=== PATIENT | female | born 1970 | race Caucasian/White ===

== ENCOUNTER 2017-02-15 08:36 | Observation (INO) ==
[2017-02-15 09:36] LABS: Basophils % 0.4 %; Eosinophils # 0.1 K/mcL (0.0-0.6); Eosinophils % 1.7 %; Hematocrit 41.2 % (35.3-44.9); Hemoglobin 13.6 g/dL (11.5-15.4); Immature Granulocytes % 0.4 % (0-4); Lymphocytes # 1.3 K/mcL (0.6-4.6); Lymphocytes % 15.3 %; Mean Corpuscular Hemoglobin 30.5 pg (28.0-33.3); Mean Corpuscular Volume 92.4 fL (83.0-100.0); Monocytes # 0.6 K/mcL (0.0-1.3); Monocytes % 7.5 %; Neutrophils # 6.1 K/mcL (1.6-8.9); Platelet Count 271 K/mcL (140-400); Red Blood Count 4.46 M/mcL (3.82-4.97); Red Cell Distribution Width 12.7 % (11.5-14.5); Segmented Neutrophils % 74.7 %
[2017-02-15 09:40] LABS: Prothrombin Time 10.7 Seconds (9.4-12.1)
[2017-02-15 09:43] LABS: Activated Partial Thrombo Time 29.6 Seconds (26.0-36.0)
[2017-02-15 09:48] LABS: BUN/Creatinine Ratio 11 (6-26); Blood Urea Nitrogen 9 mg/dL (7-20); Calcium 9.6 mg/dL (8.6-10.8); Carbon Dioxide 27 mEq/L (19-29); Chloride 103 mEq/L (98-109); Glucose 84 mg/dL (70-99); Osmolality,Calculated 284 (280-300); Potassium 3.9 mEq/L (3.5-4.5); Sodium 138 mEq/L (136-145); eGFR For African Americans > 60 (> 60); eGFR For Non-African Americans > 60 (> 60)
[2017-02-15 10:16] LABS: Alanine Aminotransferase 11 Units/L (0-55); Albumin 3.9 g/dL (3.5-5.0); Albumin/Globulin Ratio 1.1 (1.1-2.2); Alkaline Phosphatase 68 Units/L (38-126); Aspartate Amino Transferase 14 Units/L (5-34); Bilirubin,Direct 0.3 mg/dL (0.0-0.5); Bilirubin,Indirect 0.5 mg/dL (0.0-1.2); Bilirubin,Total 0.8 mg/dL (0.2-1.2); Globulin 3.4 g/dL (2.4-3.5); Total Protein 7.3 g/dL (6.0-8.3)
[2017-02-15] MEDS ORDERED: Aspirin 325 MG TABLET PO ONE (12:53)
[2017-02-15] MEDS ORDERED: Nitroglycerin 0.4 MG TAB.SUBL SL PRN (12:53)
--- NOTE | 2017-02-15 13:35 | Emergency Department Note ---
Disposition Clinical Impression: Chest pain Qualifiers: Chest pain type: unspecified Qualified Code(s): R07.9 - Chest pain, unspecified Disposition: Home, Self-Care Condition: Good Reasons to Return/Additional Instructions: You will need to follow up with your pcp in the next 48 hours for recheck and possible stress test. Referrals: NONE,PCP [Primary Care Provider] - Forms: ED Satisfaction Letter Chest Pain HPI - General Chief Complaint: ED Chest Pain Stated Complaint: Chest Pain Time Seen by Provider: 02/15/17 09:02 Source: patient Limitations: no limitations Vital Signs Reviewed: Yes Nursing Notes Reviewed: Yes - History of Present Illness HPI Narrative: This is a 46-year-old female presents with concern for chest pain. She does not have family history of early heart attack. She presents now with concern for chest pain over the left chest wall. She has no dyspnea. She has no cough. She denies congestion. She admits to pain that has been constant and under her left breast for approximately 2 days. Severity scale (1-10): 4 - Related Data Home Medications Medication Instructions Recorded Confirmed Glucosamine Sulfate Dipot Chlr 2,000 mg PO DAILY 01/25/17 01/25/17 [Glucosamine] Lactobacillus Acidophilus 1 mg PO DAILY 01/25/17 01/25/17 [Acidophilus Probiotic] Montelukast [Singulair] 10 mg PO DAILY 01/25/17 01/25/17 Turmeric Root Extract [Turmeric] 500 mg PO DAILY 01/25/17 01/25/17 Vitamin E Acetate [Vitamin E] 400 unit PO DAILY 01/25/17 01/25/17 Xyzal 5 mg PO DAILY 01/25/17 01/25/17 Allergies Allergy/AdvReac Type Severity Reaction Status Date / Time Sulfa (Sulfonamide Allergy Hives Verified 02/15/17 08:39 Antibiotics) All systems ED: reviewed and negative except as stated. Chest Pain PMH - Past Medical History Medical history: Reports: other Psychiatric history: Reports: anxiety - Social History Smoking Status: Former smoker Alcohol use: Reports: none Drug use: Reports: none Physical Exam - General Limitations: no limitations General appearance: alert, in no apparent distress - Head Head exam: atraumatic - ENT ENT exam: normal exam - Neck Neck exam: Present: normal inspection, full ROM - Chest Chest inspection: Present: normal inspection - Respiratory Respiratory exam: Present: normal lung sounds bilaterally - Cardiovascular Cardiovascular exam: Present: regular rate, normal rhythm - Abdominal Exam Abdominal exam: Present: soft, Non-Tender - Extremities Exam Extremities exam: Present: normal inspection, full ROM - Expanded Lower Extremity Exam Hip/Pelvis exam: Present: normal inspection, full ROM Neurovascular/Tendon exam: Present: normal capillary refill Gait: observed and normal - Back Exam Back exam: Present: normal inspection, full ROM - Neurological Exam Neurological exam: Present: alert, oriented X3 - Psychiatric Psychiatric exam: Present: normal affect, normal mood Course Vital Signs Temperature 97.3 F L 02/15/17 08:39 Pulse Rate 86 02/15/17 08:39 Respiratory Rate 16 02/15/17 08:39 Blood Pressure 115/77 02/15/17 08:39 O2 Sat by Pulse Oximetry 100 02/15/17 08:39 Temperature 97.3 F L 02/15/17 08:39 Pulse Rate 85 02/15/17 13:27 Respiratory Rate 18 02/15/17 13:27 Blood Pressure 113/72 02/15/17 13:27 O2 Sat by Pulse Oximetry 99 02/15/17 13:27 Oxygen Delivery Oxygen Delivery Room Air Chest Pain - MDM Narrative Medical decision making narrative: Atypical chest wall pain. There were findings of atelectasis over the left chest wall. Her pain is certainly more than I would expect given negative cardiac biomarkers as well as a nonspecific EKG. Her heart score is 5. I would proceed with admission because she does have ST segment changes in V4 and V5 which could represent early ischemia. I do think she would benefit from provocative testing. Despite negative cardiac biomarkers and no change in her pain with nitroglycerin administration I think she would benefit from cardiology consultation as well. Patient will be admitted for further evaluation. Discussed case with hospitalist team. - Medical Records Medical records reviewed: Yes I reviewed the patient's medical records. - Lab Data Lab results reviewed: Yes I reviewed the patient's lab results. Result diagrams: 02/15/17 09:27 02/15/17 09:27 Lab Results 02/15/17 02/15/17 02/15/17 Range/Units 09:27 09:27 09:27 WBC 8.2 (4.3-11.1) K/mcL RBC 4.46 (3.82-4.97) M/mcL Hgb 13.6 (11.5-15.4) g/dL Hct 41.2 (35.3-44.9) % MCV 92.4 (83.0-100.0) fL MCH 30.5 (28.0-33.3) pg MCHC 33.0 (31.6-35.5) g/dL RDW 12.7 (11.5-14.5) % Plt Count 271 (140-400) K/mcL MPV 9.0 L (9.4-12.4) fL Immature Gran % 0.4 (0-4) % Seg Neutrophils % 74.7 % Lymphocytes % 15.3 % Monocytes % 7.5 % Eosinophils % 1.7 % Basophils % 0.4 % Neutrophils # 6.1 (1.6-8.9) K/mcL Lymphocytes # 1.3 (0.6-4.6) K/mcL Monocytes # 0.6 (0.0-1.3) K/mcL Eosinophils # 0.1 (0.0-0.6) K/mcL Basophils # 0.0 (0.0-0.2) K/mcL PT 10.7 (9.4-12.1) Seconds INR 1.0 APTT 29.6 (26.0-36.0) Seconds D-Dimer 376 (0-500) ng/mLFEU Sodium (136-145) mEq/L Potassium (3.5-4.5) mEq/L Chloride (98-109) mEq/L Carbon Dioxide (19-29) mEq/L BUN (7-20) mg/dL Creatinine (0.57-1.11) mg/dL Est GFR ( Amer) (> 60) Est GFR (Non-Af Amer) (> 60) BUN/Creatinine Ratio (6-26) Glucose (70-99) mg/dL Calculated Osmolality (280-300) Calcium (8.6-10.8) mg/dL Total Bilirubin (0.2-1.2) mg/dL Direct Bilirubin (0.0-0.5) mg/dL Indirect Bilirubin (0.0-1.2) mg/dL AST (5-34) Units/L ALT (0-55) Units/L Alkaline Phosphatase (38-126) Units/L Troponin I (0-0.03) ng/mL Serum Total Protein (6.0-8.3) g/dL Albumin (3.5-5.0) g/dL Globulin (2.4-3.5) g/dL Albumin/Globulin Ratio (1.1-2.2) Lipase 16 (8-78) Units/L 02/15/17 02/15/17 Range/Units 09:27 09:27 WBC (4.3-11.1) K/mcL RBC (3.82-4.97) M/mcL Hgb (11.5-15.4) g/dL Hct (35.3-44.9) % MCV (83.0-100.0) fL MCH (28.0-33.3) pg MCHC (31.6-35.5) g/dL RDW (11.5-14.5) % Plt Count (140-400) K/mcL MPV (9.4-12.4) fL Immature Gran % (0-4) % Seg Neutrophils % % Lymphocytes % % Monocytes % % Eosinophils % % Basophils % % Neutrophils # (1.6-8.9) K/mcL Lymphocytes # (0.6-4.6) K/mcL Monocytes # (0.0-1.3) K/mcL Eosinophils # (0.0-0.6) K/mcL Basophils # (0.0-0.2) K/mcL PT (9.4-12.1) Seconds INR APTT (26.0-36.0) Seconds D-Dimer (0-500) ng/mLFEU Sodium 138 (136-145) mEq/L Potassium 3.9 (3.5-4.5) mEq/L Chloride 103 (98-109) mEq/L Carbon Dioxide 27 (19-29) mEq/L BUN 9 (7-20) mg/dL Creatinine 0.84 (0.57-1.11) mg/dL Est GFR ( Amer) > 60 (> 60) Est GFR (Non-Af Amer) > 60 (> 60) BUN/Creatinine Ratio 11 (6-26) Glucose 84 (70-99) mg/dL Calculated Osmolality 284 (280-300) Calcium 9.6 (8.6-10.8) mg/dL Total Bilirubin 0.8 (0.2-1.2) mg/dL Direct Bilirubin 0.3 (0.0-0.5) mg/dL Indirect Bilirubin 0.5 (0.0-1.2) mg/dL AST 14 (5-34) Units/L ALT 11 (0-55) Units/L Alkaline Phosphatase 68 (38-126) Units/L Troponin I 0.00 (0-0.03) ng/mL Serum Total Protein 7.3 (6.0-8.3) g/dL Albumin 3.9 (3.5-5.0) g/dL Globulin 3.4 (2.4-3.5) g/dL Albumin/Globulin Ratio 1.1 (1.1-2.2) Lipase (8-78) Units/L Heart Score - Score History: Moderately Suspicious EKG: Significant ST-Depression Age: 45-65 Risk Factors: 1-2 risk factors Troponin: Less than normal limit HEART Score Total: 5
[2017-02-15] MEDS ORDERED: Acetaminophen 325 MG TABLET PO PRN (16:20)
[2017-02-15] MEDS ORDERED: *HR* Morphine 2 MG/ML SYRINGE IVP PRN (16:20)
[2017-02-15] MEDS ORDERED: Naloxone 0.4 MG/ML INJ IVP PRN (16:20)
[2017-02-15] MEDS ORDERED: Ondansetron 4 MG/2 ML VIAL IVP PRN (16:20)
--- NOTE | 2017-02-15 16:38 | Internal Med History&Physical ---
<Lb Damon - Last Filed: 02/15/17 18:45> Date of Encounter: 02/15/17 Time of Encounter: 15:30 Assessment and Plan (1) Chest pain Current visit: Yes Status: Acute Assess: Patient presents with acute left-sided chest pain that she reports began on Tuesday and has worsened in intensity. She describes the pain under her left breast and radiating to her left shoulder blade and back. She states the pain began as sharp and stabbing and comes and goes and becomes worse with deep inspiration. She denies cough or sputum production. Patient has no medical history and denies any previous cardiac events or issues but has familial history of cardiac risk factors including, HD, CO, and CVA. Initial troponin was 0.00. Patient states that nitroglycerin did not help her symptoms. EKG today shows sinus rhythm with short [place] intervals. Plan: Stat echocardiogram ordered Continuous cardiac telemetry Trend troponins x2 Nitroglycerin PRN Continue daily 81 mg aspirin therapy Repeat EKG Consider cardiology consult and/or stress test based on echocardiogram results Cardiac diet Qualifiers: Chest pain type: chest pain on breathing Qualified Code(s): R07.1 - Chest pain on breathing; R07.81 - Pleurodynia (2) CAP (community acquired pneumonia) Current visit: Yes Status: Acute Assess: Patient presents with chest pain and shortness of breath. Patient states that her chest pain is located under her left breast and radiates to her back and becomes worse with inspiration. Plan: Continue IV ceftriaxone 1,000 mg daily that was started in the ED Add IV levaquin 750 mg daily for CAP infection coverage Blood cultures x2 ordered Supplemental O2 and SpO2 monitoring DuoNebs Q4 scheduled Monitor patient's f/u labs for signs of increasing infection Qualifiers: Laterality: left Lung location: lower lobe of lung Qualified Code(s): J18.1 - Lobar pneumonia, unspecified organism (3) SOB (shortness of breath) Current visit: Yes Status: Acute Assess: Patient presents with acute SOB related to current chest pain and pain with inspiration. 1-View CXR today shows trace left base atelectasis. Plan: Supplemental O2 with continuous SpO2 monitoring DuoNebs Q4 scheduled Will continue IV antibiotics for suspected CAP coverage Monitor patient and VS (4) Dizziness Current visit: Yes Status: Acute Assess: Patient presents with report of acute dizziness, mainly related to positional changes. Plan: Orthostatic BPs and vital signs ordered Falls precautions Up with assist d/t dizziness Bed rest with bathroom privileges with assist only (5) DVT prophylaxis Current visit: Yes Status: Acute Assess: Patient to be placed on DVT prophylaxis due to current admission protocol and bed rest status. Plan: Heparin 5,000 units SQ Q8 ordered Internal Medicine - H&P: HPI Chief complaint: Chest pain Admitted From: Emergency Dept Plans for Post Hospital Care: Home History of present illness: Mrs. Houser is a 46 year old female who presents from the ED with chief complaint of left-sided chest pain that she reports began on Tuesday and has worsened in intensity. She describes the pain under her left breast and radiating to her left shoulder blade and back. She states the pain began as sharp and stabbing and comes and goes and becomes worse with deep inspiration. She denies cough or sputum production. Patient has no medical history and denies any previous cardiac events or issues. She denies nausea, vomiting, diarrhea, constipation, recent illness, fever, chills, abdominal pain, pre- syncope, or syncope. She does report SOB due to pain with breathing and some dizziness with positional changes. Patient's 1-View CXR today shows trace left base atelectasis. U/S of the gall bladder today shows an unremarkable right upper quadrant ultrasound. CT of the chest today shows atelectatic changes seen at the left lung base with no acute cardiopulmonary process seen. Patient does have a family history of cardiac risk factors that includes HD, CVA, and CO. Mrs. Houser is at moderate risk for cardiac event based on her current symptoms and risk factors and will be placed as inpatient status with orders for stat echocardiogram, continuous cardiac telemetry, supplemental O2 and SpO2 monitoring, troponins trended x2, DuoNebs Q4 scheduled, and aspirin therapy daily. Patient was started on IV ceftriaxone in the ED for possible CAP. Will continue IV ceftriaxone at 1,000 mg daily and add IV levaquin 750 mg daily for CAP infection coverage. Patient's current chest pain could be cardiac related versus pneumonia and she will be treated for both. Patient to be monitored closely for signs of increasing infection, cardiac, and/or respiratory distress. Time spent with patient and family >40 minutes. Past Med Surg Social Fam HX - Past Medical History Source: patient Medical history: no medical history Psychiatric history: anxiety - Past Surgical History Surgical History: orthopedic, other (Right knee), other (D&C in 1987) - Social History Smoking Status: Former smoker Packs per day: 5 cigarettes per day Smokeless Tobacco Status: No Alcohol use: none Drug use: none Current living situation: Home, With Family Activity Level: Independent ambulation Recent Out of Country Travel Within the Last 8 Weeks: No Exposure or Possible Exposure to Illness During Travel: No - Family History Father Race: Family Member Ethnicity: Non- Living Status: Still Living Hx Family Cardiac Disorders: Yes (HD, CVA, CO) Hx Family Cancer: Yes (Lung, colon) Mother Race: Family Member Ethnicity: Non- Living Status: Still Living Hx Family Cancer: Yes (Cervical) Sister Race: Family Member Ethnicity: Non- Living Status: Still Living Hx Family Medical Disorders: No Internal Medicine - H&P: Meds Glucosamine Sulfate Dipot Chlr [Glucosamine] 2,000 mg PO DAILY 01/25/17 [History ] Lactobacillus Acidophilus [Acidophilus Probiotic] 1 mg PO DAILY 01/25/17 [ History] Montelukast [Singulair] 10 mg PO DAILY 01/25/17 [History] Turmeric Root Extract [Turmeric] 500 mg PO DAILY 01/25/17 [History] Vitamin E Acetate [Vitamin E] 400 unit PO DAILY 01/25/17 [History] Xyzal 5 mg PO DAILY 01/25/17 [History] 3 Allergy/AdvReac Type Severity Reaction Status Date / Time Sulfa (Sulfonamide Allergy Hives Verified 02/15/17 08:39 Antibiotics) All Systems PM: A 10-system review of systems was performed and is negative for pertinent findings except as documented above in the HPI. - Constitutional Constitutional: no chills, no fever(s), no night sweats - EENT Eyes: no change in vision, no discharge, no pain, no photophobia Ears: no ear discharge, no ear pain, no tinnitus Nose, mouth and throat: no dysphagia, no nasal discharge, no neck pain, no sore throat - Breasts Breasts: as per HPI - Cardiovascular Cardiovascular ROS IM: as per HPI, chest pain, dyspnea, dyspnea on exertion, lightheadedness - Respiratory Respiratory: as per HPI, dyspnea, dyspnea on exertion, pain on inspiration, pain with cough - Gastrointestinal Gastrointestinal: no abdominal pain, no diarrhea, no hematemesis, no hematochezia, no melena, no nausea, no vomiting - Genitourinary Genitourinary: no change in urinary stream, no dysuria, no flank pain, no hematuria Menstruation: as per HPI - Musculoskeletal Musculoskeletal ROS IM: no numbness, no tingling - Integumentary Integumentary IM: no rash, no unusual bruising - Neurological Neurological ROS: no confusion, no convulsions, no focal weakness, no numbness, no tingling, no tremor(s) - Psychiatric Psychiatric: as per HPI - Endocrine Endocrine IM: as per HPI - Hematologic/Lymphatic Hematologic/Lymphatic: no easy bruising - Allergic/Immunologic Allergic/Immunologic: as per HPI - Constitutional Vitals: Temp Pulse Resp BP Pulse Ox 97.3 F L 85 18 124/76 99 02/15/17 08:39 02/15/17 13:27 02/15/17 16:03 02/15/17 16:03 02/15/17 13:27 General appearance: Present: cooperative, mild distress, A&O X 3, pleasant, obese, answers questions appropriately - Head Head exam: Present: atraumatic, normocephalic - Eye Eye exam: Present: PERRL, conjuntiva pink, sclera anicteric Pupils: Present: PERRL - ENT ENT exam: Present: normal exam, normal external ear exam - Neck Neck exam general surgery: Present: normal inspection, supple, trachea midline. Absent: lymphadenopathy - Respiratory Respiratory exam: Present: accessory muscle use (Due to pain with inspiration. ) - Cardiovascular Cardiovascular exam: Present: RRR, +S1, +S2. Absent: diastolic murmur, gallop, rubs, systolic murmur - GI/Abdominal GI/Abdominal exam: Present: normal bowel sounds, soft, no peritoneal signs. Absent: distended, tenderness - Rectal Rectal exam: Present: deferred - Additional comments: exam deferred. - Extremities Exam Extremities exam: Present: warm, radial pulses palpable and symmetrical. Absent : calf tenderness, cyanotic, pedal edema - Back Exam Back exam: Present: normal inspection - Neurological Exam Neurological exam: Present: CN II-XII intact, oriented X3, no focal deficits. Absent: pronater drift, facial droop, speech deficit - Psychiatric Psychiatric exam: Present: normal affect, normal mood - Skin Skin exam: Present: dry, intact Internal Med - H&P Results - Labs CBC & Chem 7: 02/15/17 09:27 02/15/17 09:27 - EKG Data EKG shows normal: sinus rhythm - EKG Data Prior EKG available for review: no EKG comments: 02/15/17 16:50 EKG dated 02/15/17 shows sinus rhythm with short [place] interval. Borderline ECG. - Diagnostic Studies Chest x-ray Additional comments: Impressions Chest X-Ray 02/15/17 09:13 IMPRESSION: Trace left base atelectasis D/ / Dayday Dee MD / Dayday Dee MD Interpreting Provider: Dayday Dee MD CT scan - chest Additional comments: Impressions Chest CT 02/15/17 10:49 IMPRESSION: Atelectatic changes seen at the left lung base with no acute cardiopulmonary process seen. D/ / Jake Claudio MD / Jake Claudio MD Interpreting Provider: Jake Claudio MD US - abdomen Additional comments: Impressions Gallbladder Ultrasound 02/15/17 09:38 IMPRESSION: Unremarkable right upper quadrant ultrasound. D/ / Carlos Steve MD / Carlos Steve MD Interpreting Provider: Carlos Steve MD <Tony Wu K - Last Filed: 02/15/17 18:58> Date of Encounter: 02/15/17 Internal Medicine - H&P: HPI History of present illness: Ms. Houser is a 46 year old female All Systems PM: A 10-system review of systems was performed and is negative for pertinent findings except as documented above in the HPI. - Constitutional Vitals: Temp Pulse Resp BP Pulse Ox 98.4 F 85 18 114/74 99 02/15/17 16:41 02/15/17 16:41 02/15/17 16:41 02/15/17 16:41 02/15/17 16:41 Internal Med - H&P Results - Labs CBC & Chem 7: 02/15/17 09:27 02/15/17 09:27 Labs: Cardiac Enzymes 02/15/17 Range/Units 17:32 Troponin I 0.00 (0-0.03) ng/mL - Attending Attestation I have personally seen the patient and examined the patient. She has come in with the pleuritic chest pain which is on the left side and correlates well with her CT chest findings of left-sided atelectasis which what I would consider as pneumonia. On examination her breath sounds are shallow I suspect due to pain therefore I will put her on ibuprofen and [place] combination for a few doses so that pleuritic chest pain resolves. We will check her cardiac enzymes and echocardiogram. She will be treated with IV antibiotics. Plan discuss with advancednurse practitioner
[2017-02-15] MEDS: Levofloxacin 750 MG/150 ML 750 MG/150 ML BAG IVPB SCH (16:53)
[2017-02-15] MEDS: Pantoprazole 40 MG VIAL IVP SCH (16:53)
[2017-02-15] MEDS: Ipratropium/Albuterol Neb 3 ML IH SCH ×3 (17:06→23:23)
[2017-02-15] MEDS: *HR* HYDROcodone/Acet 5/325 mg TABLET PO PRN (20:36)
--- NOTE | 2017-02-15 20:52 | Electrocardiograph Report ---
[place] [facility] Test Date: 2017-02-15 Pat Name: Ynu Houser Department: 104 Room: [facility] Gender: F [employer]: AM : 1970 Requested By: Elpidio Cota Order Number: [id number] Reading MD: Chris Hu MD Measurements Intervals [place] Rate: 77 P: 65 GA: 108 QRS: 79 QRSD: 88 T: 59 QT: 389 QTc: 421 Interpretive Statements SINUS RHYTHM WITH SHORT GA INTERVAL Electronically Signed On 02-15-2017 20:50:24 EDT by Chris Hu MD
[2017-02-15] MEDS ORDERED: Temazepam 15 MG CAPSULE PO PRN (23:24)
[2017-02-15] MEDS: *HR* Heparin 5,000 UNIT/ML VIAL SQ SCH (23:48)
[2017-02-16 02:34] LABS: Basophils % 0.2 %; Eosinophils # 0.1 K/mcL (0.0-0.6); Eosinophils % 0.7 %; Hematocrit 36.2 % (35.3-44.9); Hemoglobin 12.4 g/dL (11.5-15.4); Immature Granulocytes % 0.3 % (0-4); Lymphocytes # 1.3 K/mcL (0.6-4.6); Lymphocytes % 13.6 %; Mean Corpuscular HGB Conc 34.3 g/dL (31.6-35.5); Mean Corpuscular Hemoglobin 31.2 pg (28.0-33.3); Mean Platelet Volume 9.3 fL (9.4-12.4); Monocytes % 9.8 %; Neutrophils # 7.3 K/mcL (1.6-8.9); Platelet Count 254 K/mcL (140-400); Red Blood Count 3.98 M/mcL (3.82-4.97); Red Cell Distribution Width 12.8 % (11.5-14.5); Segmented Neutrophils % 75.4 %
[2017-02-16 02:38] LABS: INR 1.1; Prothrombin Time 12.3 Seconds (9.4-12.1)
[2017-02-16 02:41] LABS: Activated Partial Thrombo Time 32.1 Seconds (26.0-36.0)
[2017-02-16 02:48] LABS: BUN/Creatinine Ratio 12 (6-26); Blood Urea Nitrogen 10 mg/dL (7-20); Calcium 9.1 mg/dL (8.6-10.8); Carbon Dioxide 26 mEq/L (19-29); Chloride 106 mEq/L (98-109); Chol/HDL Ratio 3.2 (0-4.9); Cholesterol 211 mg/dL (< 200); Glucose 96 mg/dL (70-99); HDL Cholesterol 65 mg/dL (40-59); LDL Cholesterol,Calculated 128 mg/dL (0-99); Magnesium 2.1 mg/dL (1.6-2.6); Osmolality,Calculated 289 (280-300); Potassium 3.4 mEq/L (3.5-4.5); Sodium 140 mEq/L (136-145); Triglycerides 92 mg/dL (< 150); eGFR For African Americans > 60 (> 60); eGFR For Non-African Americans > 60 (> 60)
[2017-02-16] MEDS: Ipratropium/Albuterol Neb 3 ML IH SCH ×4 (04:02→16:32)
[2017-02-16] MEDS: *HR* HYDROcodone/Acet 5/325 mg TABLET PO PRN ×2 (04:51→11:37)
[2017-02-16] MEDS ORDERED: Loratadine 10 MG TABLET PO SCH (09:00)
[2017-02-16] MEDS: *HR* Heparin 5,000 UNIT/ML VIAL SQ SCH (09:03)
[2017-02-16] MEDS: Pantoprazole 40 MG VIAL IVP SCH (09:03)
--- NOTE | 2017-02-16 09:54 | Internal Med Progress Note ---
Date of Encounter: 02/16/17 - Constitutional Vitals: Temp Pulse Resp BP Pulse Ox 98.1 F 90 16 118/71 97 02/16/17 07:29 02/16/17 07:29 02/16/17 07:29 02/16/17 07:29 02/16/17 07:29 General appearance: Present: cooperative, mild distress, A&O X 3, pleasant, obese, answers questions appropriately Internal Medicine: Result - Labs CBC & Chem 7: 02/16/17 01:34 02/16/17 01:34 Labs: Short CBC 02/16/17 Range/Units 01:34 WBC 9.7 (4.3-11.1) K/mcL Hgb 12.4 (11.5-15.4) g/dL Hct 36.2 (35.3-44.9) % Plt Count 254 (140-400) K/mcL Neutrophils # 7.3 (1.6-8.9) K/mcL BMP 02/16/17 01:34 Sodium 140 Potassium 3.4 L Chloride 106 Carbon Dioxide 26 BUN 10 Creatinine 0.85 Glucose 96 Calcium 9.1 Cardiac Enzymes 02/15/17 02/16/17 Range/Units 17:32 01:34 Troponin I 0.00 0.00 (0-0.03) ng/mL - ABG Interpretation ABG results: PT/INR, D-dimer PT 12.3 Seconds (9.4-12.1) H 02/16/17 01:34 D-Dimer 376 ng/mLFEU (0-500) 02/15/17 09:27 Consult Discharge Plan - Plan Referrals: NONE,PCP [Primary Care Provider] -
[2017-02-16] MEDS: Levofloxacin 750 MG/150 ML 750 MG/150 ML BAG IVPB SCH (10:14)
[2017-02-16 15:09] VITALS: BP 116/74
--- NOTE | 2017-02-16 16:39 | Discharge Summary ---
<Renetta Claudio - Last Filed: 02/16/17 16:42> Date of Encounter: 02/16/17 Time of Encounter: 16:39 - Discharge Diagnosis (1) Chest pain Priority: Primary Status: Acute Qualifiers: Chest pain type: chest pain on breathing Qualified Code(s): R07.1 - Chest pain on breathing; R07.81 - Pleurodynia (2) Somatic dysfunction of rib Priority: Primary Status: Acute (3) SOB (shortness of breath) Priority: Primary Status: Resolved (4) Hypokalemia Priority: Primary Status: Acute (5) Hypercholesterolemia Priority: Secondary Status: Acute - Discharge Medications Home Medications: Glucosamine Sulfate Dipot Chlr [Glucosamine] 2,000 mg PO DAILY 01/25/17 [History ] Lactobacillus Acidophilus [Acidophilus Probiotic] 1 mg PO DAILY 01/25/17 [ History] Montelukast [Singulair] 10 mg PO DAILY 01/25/17 [History] Turmeric Root Extract [Turmeric] 500 mg PO DAILY 01/25/17 [History] Vitamin E Acetate [Vitamin E] 400 unit PO DAILY 01/25/17 [History] Xyzal 5 mg PO DAILY 01/25/17 [History] Allergies/Adverse Reactions: 3 Allergy/AdvReac Type Severity Reaction Status Date / Time Sulfa (Sulfonamide Allergy Hives Verified 02/15/17 08:39 Antibiotics) Procedures/tests Complete & Pending: Procedures Performed prior 72 hours Category Date Time Status EKG [ECG 12 lead ECG] [ECG] Routine Y 02/15/17 17:09 Ordered EV echocardiogram Stat Y 02/15/17 16:23 Completed Date of admission: 02/15/17 15:40 Primary care physician: PCP NONE - Patient Status Disposition: Home, Self-Care Condition: Good Functional capacity at discharge: independent ambulation Overall status at discharge: patient is progressing back to baseline - Discharge Instructions Instructions: Noncardiac Chest Pain (DC) Follow Up With: Arturo Sheth MD [Non-Partnered Physician] - 02/25/17 9:30 am Additional Instructions: Return to the emergency department if: You have severe chest pain or develop chest pain with excursion or associated nausea, vomiting, radiating pain. If symptoms worsen or new symptoms arise. Contact your healthcare provider if: Your chest pain does not get better, even with treatment. You have questions or concerns about your condition or care. Follow-up with your primary care physician within the next week for follow-up on potassium and hospital admission. Begin to eat more high potassium foods such as spinach and bananas. Use Tylenol or ibuprofen for pain control. - Diet and Activity Activity: resume usual activities as tolerated Diet: regular diet Hospital course: Ms. Houser is a 46 year old female with no significant past medical history presented to the ED with 2 days of left-sided chest pain and was admitted to the hospital for acute coronary artery disease and work up for chest pain. EKGs showed sinus rhythm without only ST changes on first beat of transition to V4 and V5. Patient's troponins were followed and were 0.02. Echo showed ejection fraction of 60-65% and normal valvular, atrial, and diastolic function. Patient has not smoked in 3 years, denies medical hx of HTN or DM, family hx of youngest family member with an GA is 60 y/o. Community-acquired pneumonia was ruled out due to CXR and chest CT showing only atelectasis at the left base and she has no clinical symptoms as she denies cough, sputum, fever. Patient's white blood cell count also remained within normal limits during her hospital stay along wit her vitals. PE was ruled out as a d-dimer was 376 and she is low risk without prior hx of PE or DVT, no recent travel, or surgical hx. Patient's pain does not radiate to her back and her vitals have been stable since arrival so AAA is highly unlikely. Chest pain is most likely due to musculoskeletal pain as pain is reproducible with palpation under her L breast and around her left side to her back along rib 6. OMT was perforemd using Myofascial release and still technique and patient's pain decreased significantly and the sharp pain went away and she was now complaining of a dull pain. Patient was instruchted to us an NSAID for or Tylenol and a heating pad to help relax her muscles. Patient was found to be hypokalemic at 3.4 and was given 1 dose of oral potassium chloride 40 mg and instructed to follow-up with her primary care physician to monitor. Patients total cholesterol and LDL were noted to be elevated but ASCVD risk was calculated at 2.2% and therefore does not need a long-term statin. She was instructed to follow-up with her primary care physician within the next week for hospital follow-up to monitor her potassium and work up other chronic causes of shortness of breath. Patient instructed to use Motrin or Tylenol for pain and to return to the ED of symptoms worsen or new symptoms arise. - Time Spent with Patient Total time spent providing and/or coordinating discharge services: - Constitutional Vitals: Temp Pulse Resp BP Pulse Ox 98.0 F 86 16 116/74 100 02/16/17 15:02/16/17 15:02/16/17 15:02/16/17 15:02/16/17 15:09 General appearance: Present: cooperative, mild distress, A&O X 3, pleasant, obese, answers questions appropriately Exam: Constitutional: Alert, in no acute distress, well nourished, well developed. Head: Normocephalic, atraumatic, normal contour and symmetric, no masses, lesions or scars Heart: Normal, regular rate and rhythm, no murmurs Chest: pinpoint tenderness at L costal margin on head of rib 6 anteriorly and along rib below L breast and posteriorly to her back, tenderness diminished with superior pressure on the inferior aspect of the rib Lungs: Clear to auscultation, no wheezes, rales, or rhonchi Abdomen: Soft, nondistended, nontender, and no masses palpable, bowel sounds present and normal, no guarding or rigidity. Extremities: No clubbing, cyanosis, or edema, radial pulse +2/4, capillary refill <2sec. Skin: Skin warm and dry, no lesions, no rashes, no jaundice Neurologic: Cranial nerves II through XII grossly intact, no focal deficits, strength within normal limits in all extremities Psych: Cooperative with exam, good eye contact, cognitive function intact, judgment good insight good, speech clear, thought process logical, and goal directed <Karthik Decker T - Last Filed: 02/16/17 19:07> Date of Encounter: 02/16/17 Procedures/tests Complete & Pending: Procedures Performed prior 72 hours Category Date Time Status EKG [ECG 12 lead ECG] [ECG] Routine Y 02/15/17 17:09 Ordered EV echocardiogram Stat Y 02/15/17 16:23 Completed Date of admission: 02/15/17 15:40 Primary care physician: PCP NONE Hospital course: Ms. Houser is a 46 year old female - Time Spent with Patient Total time spent providing and/or coordinating discharge services: - Constitutional Vitals: Temp Pulse Resp BP Pulse Ox 98.0 F 86 16 116/74 100 02/16/17 15:09 02/16/17 15:09 02/16/17 15:09 02/16/17 15:09 02/16/17 15:09 - Attending Attestation I have independently seen and examined this patient on 02/16/17, reviewed the EMR and discussed plan of care with the patient and resident physician 46 F admitted for chest pain of 2 days duration, which seems to be musculoskeletal in nature, she was also being managed for suspected pneumonia, however, patient has no cough, phlegm, fever, no SOB and her CT scan is negative. Chest pain is reproducible, and EKG and ECHo are normal, Troponin is negative X3. Patient is clinically stable to be discharged. Discontinue antibiotics. She may be given NSAID prn. Encouraged to represent should chest pain recur Lipid panel unremarkable, ASCVD score is low, encourage lifestyle modification. Rest of details as in resident physician's documentation
== END 2017-02-16 18:44 | disposition home or self-care (01) ==
LOC: EMEROO 08:36 → 3NENU 08:36 → SUATTDRO 16:20 → 3NENU 16:22 → 3BNU 02-16 12:23
PROVIDERS: ADMIT Internal Medicine; ATTEND Internal Medicine